=== PATIENT | female | born 1960 | race Caucasian/White ===

== ENCOUNTER 2016-12-15 01:14 | Emergency (ER) | payer SELFPAY ==
[~2016-12-15] VITALS: Ht 152.4 cm; Wt 102.1 kg
--- NOTE | 2016-12-15 01:16 | ED.ADGEN ---
Past History Past Medical History: Anxiety, Hypertension, Pneumonia Past Surgical History: No Surgical History Alcohol Use: None Drug Use: None Adult General Chief Complaint Chief Complaint hypertension HPI HPI Patient is a 56 year old female who presents with blood pressures. She states she used to have a history of high blood pressure and was on metoprolol however was able to be taken off this a year ago after she dropped 60 pounds. She states over the last year she is gaining back or 60 pounds and didn't know she had high blood pressure and today she was getting her physical done for her new job when her blood pressures were being recorded as 180/120, repeated and was 180/114. She denies any nausea fevers chills chest pain dysuria abdominal discomfort or other concerns. 7 history of tobacco abuse and smokes a pack per day stone that for several years. She currently does not have a primary care physician. Review of Systems Review of Systems Constitutional: Denies fever or chills [] Eyes: Denies change in visual acuity, redness, or eye pain [] HENT: Denies nasal congestion or sore throat [] Respiratory: Denies cough or shortness of breath [] Cardiovascular: No additional information not addressed in HPI [] GI: Denies abdominal pain, nausea, vomiting, bloody stools or diarrhea [] : Denies dysuria or hematuria [] Musculoskeletal: Denies back pain or joint pain [] Integument: Denies rash or skin lesions [] Neurologic: Denies headache, focal weakness or sensory changes [] Endocrine: Denies polyuria or polydipsia [] Allergies Allergies Allergies Coded Allergies Type Severity Reaction Last Updated Verified No Known Drug Allergies 11/02/15 No Physical Exam Physical Exam Constitutional: Well developed, well nourished, no acute distress, non-toxic appearance. [] HENT: Normocephalic, atraumatic, bilateral external ears normal, oropharynx moist, no oral exudates, nose normal. [] Eyes: PERRLA, EOMI, conjunctiva normal, no discharge. [] Neck: Normal range of motion, no tenderness, supple, no stridor. [] Cardiovascular:Heart rate regular rhythm, no murmur [] Lungs & Thorax: Bilateral breath sounds clear to auscultation [] Abdomen: Bowel sounds normal, soft, no tenderness, no masses, no pulsatile masses. [] Skin: Warm, dry, no erythema, no rash. [] Back: No tenderness, no CVA tenderness. [] Extremities: No tenderness, no cyanosis, no clubbing, ROM intact, no edema. [] Neurologic: Alert and oriented X 3, normal motor function, normal sensory function, no focal deficits noted. [] Psychologic: Affect normal, judgement normal, mood normal. [] Current Patient Data Vital Signs Vital Signs Date Time Temp Pulse Resp B/P (MAP) Pulse Ox O2 Delivery O2 Flow Rate FiO2 12/15/16 01:47 74 20 142/98 (113) 95 Room Air 12/15/16 01:20 97.6 Lab Results Laboratory Tests Test 12/15/16 01:35 12/15/16 01:40 Urine Collection Type Unknown Urine Color Yellow Urine Clarity Clear Urine pH 5.0 Urine Specific [place] 1.020 Urine Protein 30 mg/dl (NEG-TRACE) Urine Glucose (UA) Neg mg/dL (NEG) Urine Ketones (Stick) Neg mg/dL (NEG) Urine Blood Trace (NEG) Urine Nitrite Neg (NEG) Urine Bilirubin Neg (NEG) Urine Urobilinogen Dipstick 0.2 mg/dL (0.2 mg/dL) Urine Leukocyte Esterase Large (NEG) Urine RBC Occ /HPF (0-2) Urine WBC 5-10 /HPF (0-4) Urine Squamous Epithelial Cells Few /LPF Urine Bacteria Few /HPF (0-FEW) Urine Opiates Screen Neg (NEG) Urine Methadone Screen Neg (NEG) Urine Barbiturates Neg (NEG) Urine Phencyclidine Screen Neg (NEG) Urine Amphetamine/Methamphetamine Neg (NEG) Urine Benzodiazepines Screen Neg (NEG) Urine Cocaine Screen Neg (NEG) Urine Cannabinoids Screen Neg (NEG) Urine Ethyl Alcohol Neg (NEG) White Blood Count 9.1 x10^3/uL (4.0-11.0) Red Blood Count 4.74 x10^6/uL (3.50-5.40) Hemoglobin 15.1 g/dL (12.0-15.5) Hematocrit 43.4 % (36.0-47.0) Mean Corpuscular Volume 92 fL (79-100) Mean Corpuscular Hemoglobin 32 pg (25-35) Mean Corpuscular Hemoglobin Concent 35 g/dL (31-37) Red Cell Distribution Width 12.4 % (11.5-14.5) Platelet Count 200 x10^3/uL (140-400) Neutrophils (%) (Auto) 55 % (31-73) Lymphocytes (%) (Auto) 37 % (24-48) Monocytes (%) (Auto) 5 % (0-9) Eosinophils (%) (Auto) 2 % (0-3) Basophils (%) (Auto) 0 % (0-3) Neutrophils # (Auto) 5.0 x10^3uL (1.8-7.7) Lymphocytes # (Auto) 3.4 x10^3/uL (1.0-4.8) Monocytes # (Auto) 0.5 x10^3/uL (0.0-1.1) Eosinophils # (Auto) 0.2 x10^3/uL (0.0-0.7) Basophils # (Auto) 0.0 x10^3/uL (0.0-0.2) Sodium Level 139 mmol/L (136-145) Potassium Level 3.9 mmol/L (3.5-5.1) Chloride Level 103 mmol/L (98-107) Carbon Dioxide Level 26 mmol/L (21-32) Anion Gap 10 (6-14) Blood Urea Nitrogen 31 mg/dL (7-20) H Creatinine 0.8 mg/dL (0.6-1.0) Estimated GFR (Cockcroft-Gault) 74.5 BUN/Creatinine Ratio 39 (6-20) H Glucose Level 98 mg/dL (70-99) Calcium Level 9.4 mg/dL (8.5-10.1) Magnesium Level 2.0 mg/dL (1.8-2.4) Total Bilirubin 0.5 mg/dL (0.2-1.0) Aspartate Amino Transferase (AST) 16 U/L (15-37) Alanine Aminotransferase (ALT) 30 U/L (14-59) Alkaline Phosphatase 80 U/L (46-116) Creatine Kinase 102 U/L (26-192) Creatine Kinase MB (Mass) 1.8 ng/mL (0.0-3.6) Creatine Kinase MB Relative Index 1.8 % (0-4) Troponin I Quantitative < 0.017 ng/mL (0-0.055) BZ-Ovd-Y-Type Natriuretic Peptide 40 pg/mL (0-124) Total Protein 8.1 g/dL (6.4-8.2) Albumin 4.1 g/dL (3.4-5.0) Albumin/Globulin Ratio 1.0 (1.0-1.7) EKG EKG EKG shows sinus rhythm with a rate of [address] elevations, T-wave inversion noted in aVL, QTC 433 ms, left axis deviation, as interpreted by me. Radiology/Procedures Radiology/Procedures One view chest x-ray does not show any focal consolidations, bony abnormalities or pneumothorax, as interpreted by me. Course & Med Decision Making Course & Med Decision Making Pertinent Labs and Imaging studies reviewed. (See chart for details) Labs, EKG did not show any acute abnormalities. Patient is instructed to check her blood pressure over the next week at [facility] and write these down and taken to her primary care physician's office. Return precautions given she is agreeable to the plan discharged in stable condition this time. Repeat blood pressures came down in the 140s systolic. Final Impression Final Impression Elevated blood pressure Problems: Dragon Disclaimer Dragon Disclaimer This electronic medical record was generated, in whole or in part, using a voice recognition dictation system. TONI LOU MD December 15, 2016 01:16
--- NOTE | 2016-12-15 01:46 | EKG ---
[address] [address] Test Date: 2016-12-15 Test Time: 01:42:30 Pat Name: NACHO ESTEVEZ Department: Room: Gender: F Data Analyst: : 1960 Requested By: TONI LOU Order Number: [id number] Reading MD: Alvaro Gonzalez Measurements Intervals Josephine Rate: 73 P: 25 WY: 168 QRS: -6 QRSD: 100 T: 56 QT: 390 QTc: 433 Interpretive Statements SINUS RHYTHM Electronically Signed On 12-20-2016 9:15:06 CDT by Alvaro Gonzalez
[2016-12-15 02:08] LABS: BASO % 0 % (0-3); EOS # 0.2 x10^3/uL (0.0-0.7); EOS % 2 % (0-3); HEMATOCRIT 43.4 % (36.0-47.0); HEMOGLOBIN 15.1 g/dL (12.0-15.5); LYMPH # 3.4 x10^3/uL (1.0-4.8); LYMPH % 37 % (24-48); MEAN CORPUSCULAR HEMOGLOBIN 32 pg (25-35); MEAN CORPUSCULAR HGB CONC 35 g/dL (31-37); MEAN CORPUSCULAR VOLUME 92 fL (79-100); MONO # 0.5 x10^3/uL (0.0-1.1); MONO % 5 % (0-9); NEUT % 55 % (31-73); PLATELET COUNT 200 x10^3/uL (140-400); RED BLOOD COUNT 4.74 x10^6/uL (3.50-5.40); RED CELL DISTRIBUTION WIDTH 12.4 % (11.5-14.5); WHITE BLOOD COUNT 9.1 x10^3/uL (4.0-11.0)
[2016-12-15 02:19] LABS: BACTERIA,URINE FEW /HPF (0-FEW); BILIRUBIN,URINE NEG (NEG); CLARITY,URINE CLEAR; COLOR,URINE YELLOW; GLUCOSE,URINE NEG (NEG); NITRITE,URINE NEG (NEG); RBC,URINE OCC /HPF (0-2); SQUAMOUS EPITHELIAL CELL,UR FEW /LPF; UROBILINOGEN,URINE 0.2 mg/dL (0.2 mg/dL)
[2016-12-15 02:21] LABS: BARBITURATES NEG (NEG); BENZODIAZEPINES NEG (NEG); CANNABINOIDS NEG (NEG); COCAINE NEG (NEG); METHADONE NEG (NEG); OPIATES NEG (NEG); PHENCYCLIDINE NEG (NEG)
[2016-12-15 02:23] LABS: AMPHETAMINE/METHAMPHETAMINE NEG (NEG)
[2016-12-15 02:35] LABS: ALBUMIN 4.1 g/dL (3.4-5.0); CALCIUM 9.4 mg/dL (8.5-10.1); CREATININE 0.8 mg/dL (0.6-1.0); GFR 74.5; POTASSIUM 3.9 mmol/L (3.5-5.1); TOTAL BILIRUBIN 0.5 mg/dL (0.2-1.0); TOTAL PROTEIN 8.1 g/dL (6.4-8.2)
[2016-12-15 03:00] VITALS: BP 124/96
--- NOTE | 2016-12-15 07:15 | RAD ---
Exam performed: One view chest. History: Hypertension Date of service: 12/15/16, comparison: 04/25/16 Single AP upright portable view chest findings: Borderline cardiomegaly. Ectatic tortuous aorta. Lungs are clear. No pleural effusion or pneumothorax. Impression: Stable borderline cardiomegaly with ectatic tortuous aorta. No acute pulmonary findings seen.
== END 2016-12-15 03:20 | disposition home or self-care (01) ==
LOC: ER 01:17
DX: I10 Essential (primary) hypertension (principal); F41.9 Anxiety disorder, unspecified; F17.210 Nicotine dependence, cigarettes, uncomplicated
CPT/HCPCS: 36415; 71010; 80053; 80305; 81001; 82553; 83735; 83880; 84443; 84484; 85027; 87086; 93005; G0481; 99285-25

== ENCOUNTER 2016-12-23 23:10 | Emergency (ER) | payer SELFPAY ==
[~2016-12-23] VITALS: Ht 152.4 cm; Wt 99.8 kg
--- NOTE | 2016-12-24 01:05 | PHYS DOC ---
General Chief Complaint: HYPOTENSION Stated Complaint: BLOOD PRESSURE LOW,DIZZY,NAUSEA Time Seen by MD: 23:15 Source: patient, old records Exam Limitations: no limitations Problems: History of Present Illness Initial Comments Pt is 56/F to ED c/o low BP. Pt seen at [facility] and rx HCTZ, clonidine, lisinopril for HTN. Pt doesn' t have a PCP, was seen here last week for elevated BP but on arrival it was normal. Pt took two clonidine last night then lisinopril this am, today pt felt dizzy and light headed. Checked BP at work 80's/40's, pt drank some fluids and drove to ED. In ED SBP 120's pt without symptoms. no cp/sob/focal neurodeficit/n/v/d Timing/Duration: 4-6 hours Severity: severe Modifying Factors: worse with medication, improves with rest Associated Symptoms: malaise, other Allergies: Coded Allergies: No Known Drug Allergies (Unverified , 11/02/15) Past Medical History Medical History: arthritis, hypertension, other Surgical History: noncontributory Social History Smoker: cigarettes Alcohol: rarely Drugs: none Review of Systems Constitutional: denies chills, denies diaphoresis, denies fever, malaise Respiratory: denies cough, denies shortness of breath Cardiovascular: denies chest pain, denies palpitations, denies syncope Gastrointestinal: denies diarrhea, denies nausea, denies vomiting Genitourinary: denies dysuria, denies frequency, denies hematuria Musculoskeletal: denies back pain, denies joint swelling, denies neck pain Psychiatric/Neurological: see HPI Hematologic/Lymphatic: denies blood clots, denies easy bleeding, denies easy bruising Physical Exam General Appearance: WD/WN, no apparent distress Eyes: bilateral eye normal inspection, bilateral eye PERRL, bilateral eye EOMI Ear, Nose, Throat: hearing grossly normal, normal ENT inspection, normal pharynx Neck: non-tender, supple Respiratory: normal breath sounds, no respiratory distress Cardiovascular: normal peripheral pulses, regular rate, rhythm Gastrointestinal: non tender, soft Back: no CVA tenderness, no vertebral tenderness Extremities: non-tender, normal inspection 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 I emphasized need for PCP with follow up, pt expressed agreement/understanding. Departure Time of Disposition: 01:03 Disposition: 01 HOME, SELF-CARE Diagnosis: hypotension (adverse med rxn), HTN Condition: STABLE Patient Instructions: Hypertension Additional Instructions: OK to return to work tomorrow. Rest, no strenuous activity. Discontinue clonidine and lisinopril, continue hydrochlorothiazide. Keep BP log twice daily as discussed. Follow up with [facility] later today for recheck of BP. Return to ED with new or changing symptoms. JORDY NOLASCO DO December 24, 2016 01:05
[2016-12-24 01:10] VITALS: BP 121/82
== END 2016-12-24 01:15 | disposition home or self-care (01) ==
LOC: ER 23:10
DX: I95.2 Hypotension due to drugs (principal); T46.5X5A Adverse effect of other antihypertensive drugs, initial encounter; T46.4X5A Adverse effect of angiotensin-converting-enzyme inhibitors, initial encounter; I10 Essential (primary) hypertension; F17.210 Nicotine dependence, cigarettes, uncomplicated; Y92.89 Other specified places as the place of occurrence of the external cause
CPT/HCPCS: 99281; 99283

== ENCOUNTER 2017-03-05 09:27 | Emergency (ER) | payer BC ==
[2017-03-05 09:30] VITALS: BP 160/87
[2017-03-05] MEDS ORDERED: MELO7.5T5 PO (10:30)
[2017-03-05] MEDS ORDERED: LISI1TAB3 PO (10:30)
--- NOTE | 2017-03-05 10:30 | PHYS DOC ---
Past History Past Medical History: Arthritis, Hypertension, Hypotension, Pneumonia Past Surgical History: No Surgical History Alcohol Use: Rarely Drug Use: None Adult General Chief Complaint Chief Complaint: wrist pain HPI HPI Patient is a 56-year-old female who presents ambulatory to the emergency department with the complaint of multiple aches and pains. Patient states "I just hurt all over" patient states her right wrist hurts "bad" all the time. Her knees were hurting worse but now its her wrists. Her left wrist hurts also. 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 She took ibuprofen at 1 AM, 800 mg, which has not helped. She denies fever. Patient has no history of ulcer. She does have a history of hypertension and "arthritis". Patient states she just got her insurance back 3 weeks ago and has not been able to make an appointment with her primary care doctor yet. She previously took lisinopril/hydrochlorothiazide for blood pressure but has been out of it for a long time because she has not seen a doctor. Review of Systems Review of Systems Constitutional: Denies fever or chills [] Respiratory: Denies cough or shortness of breath [] GI: Denies abdominal pain, nausea, vomiting, bloody stools or diarrhea [] Musculoskeletal: As in history of present illness Integument: Denies rash or skin lesions [] Neurologic: Denies headache, focal weakness or sensory changes [] Allergies Allergies Allergies Coded Allergies Type Severity Reaction Last Updated Verified No Known Drug Allergies 11/02/15 No Physical Exam Physical Exam Constitutional: Well developed, well nourished, no acute distress, non-toxic appearance. Alert, mentating normally, afebrile. HENT: Normocephalic, atraumatic, bilateral external ears normal, nose normal. [] Eyes: conjunctiva normal, no discharge. [] Neck: Normal range of motion, no stridor. [] Skin: Warm, dry, no erythema, no rash. [] Extremities: Bilateral wrists are without swelling, erythema, or deformity. She has tenderness over the thumb extensor tendon. Full range of motion of the thumb. Neurologic: Alert and oriented X 3, normal motor function, normal sensory function, no focal deficits noted. [] EKG EKG [] Radiology/Procedures Radiology/Procedures [] Course & Med Decision Making Course & Med Decision Making Pertinent Labs and Imaging studies reviewed. (See chart for details) 56-year-old female who is complaining of generalized arthritis pain but also complains of bilateral wrist pain that I believe is tendinitis. She also has run out of her antihypertensives and wants a refill. See instructions for plan. [] Dragon Disclaimer Dragon Disclaimer This chart was dictated in whole or in part using Voice Recognition software in a busy, high-work load, and often noisy Emergency Department environment. It may contain unintended and wholly unrecognized errors or omissions. Departure Departure: Impression: Primary Impression: Tendinitis of both wrists Additional Impression: Hypertension Disposition: HOME, SELF-CARE Condition: STABLE Referrals: PCP,LEE (PCP) Patient Instructions: Hypertension, [id number] Additional Instructions: For your diagnosis of hypertension, I have given you a prescription of the hypertension medication that you were taking in the past. Be sure to make an appointment as soon as possible for follow-up with a doctor in the clinic to manage your chronic medical problems. Your wrist pain is caused by tendinitis which means an inflamed tendon. This is sometimes caused by overuse of the tendon. As much as possible, try to rest your wrist and thumb area. Wear the Velcro splints to help limit movement of your thumb. Ice 15-20 minutes out of every 1-2 hours while awake. We will try a stronger anti-inflammatory medication. Since you have used Mobic the past we will get you back on that. Do not take ibuprofen when you're taking Mobic. If not better after 1-2 weeks of the above treatment, see a hand specialist for further evaluation. Scripts Meloxicam (MOBIC) 7.5 Mg Tablet 1 TAB PO DAILY for tendinitis, #30 TAB 1 Refill Prov: BENEDICT QUIROS MD 03/05/17 Lisinopril/Hydrochlorothiazide (LISINOPRIL-HCTZ 10-12.5 MG TAB) 1 Each Tablet 1 TAB PO DAILY for hypertension, #30 TAB 5 Refills Prov: BENEDICT QUIROS MD 03/05/17 Problem Qualifiers BENEDICT QUIROS MD Mar 05, 2017 10:30
== END 2017-03-05 10:35 | disposition home or self-care (01) ==
LOC: ER 09:27
DX: M77.8 Other enthesopathies, not elsewhere classified (principal); I10 Essential (primary) hypertension; M19.90 Unspecified osteoarthritis, unspecified site
CPT/HCPCS: 99283

== ENCOUNTER 2018-01-07 16:03 | Emergency (ER) | payer BC ==
[~2018-01-07] VITALS: Ht 152.4 cm; Wt 91.8 kg
[~2018-01-07 16:03] MED LIST: LISI1TAB3 PO; MELO7.5T5 PO
[2018-01-07 16:13] VITALS: BP 130/64
[2018-01-07] MEDS ORDERED: HYDR-971 PO (16:39)
--- NOTE | 2018-01-07 16:43 | PHYS DOC ---
Past History Past Medical History: Depression, High Cholesterol, Hypertension Past Surgical History: No Surgical History Alcohol Use: None Drug Use: None Adult General Chief Complaint Chief Complaint: KNEE INJURY HPI HPI 57-year-old female presents with left knee pain. The patient has had intermittent occult he with her left knee for several months. She is on meloxicam from her PCP. She states that it is not working. She has increased her dose to 15 mg a day and still has no effect. Last 2 days she has noticed the knee is more swollen. She denies any trauma or overuse. She does work and has to be on her feet a lot. She denies any other complaints or injuries. Review of Systems Review of Systems Constitutional: Denies fever or chills [] Eyes: Denies change in visual acuity, redness, or eye pain [] HENT: Denies nasal congestion or sore throat [] Respiratory: Denies cough or shortness of breath [] Cardiovascular: No additional information not addressed in HPI [] GI: Denies abdominal pain, nausea, vomiting, bloody stools or diarrhea [] : Denies dysuria or hematuria [] Musculoskeletal: Left knee pain[] Integument: Denies rash or skin lesions [] Neurologic: Denies headache, focal weakness or sensory changes [] Endocrine: Denies polyuria or polydipsia [] All other systems were reviewed and found to be within normal limits, except as documented in this note. Allergies Allergies Allergies Coded Allergies Type Severity Reaction Last Updated Verified No Known Drug Allergies 11/02/15 No Physical Exam Physical Exam Constitutional: Well developed, well nourished, no acute distress, non-toxic appearance. [] HENT: Normocephalic, atraumatic, bilateral external ears normal, oropharynx moist, no oral exudates, nose normal. [] Eyes: PERRLA, EOMI, conjunctiva normal, no discharge. [] Neck: Normal range of motion, no tenderness, supple, no stridor. [] Cardiovascular:Heart rate regular rhythm, no murmur [] Lungs & Thorax: Bilateral breath sounds clear to auscultation [] Abdomen: Bowel sounds normal, soft, no tenderness, no masses, no pulsatile masses. [] Skin: Warm, dry, no erythema, no rash. [] Back: No tenderness, no CVA tenderness. [] Extremities: Mild swelling of the left knee. Pain with palpation along the lateral joint line. Skin is not erythematous or hot. Ligaments are intact.[] Neurologic: Alert and oriented X 3, normal motor function, normal sensory function, no focal deficits noted. [] Psychologic: Affect normal, judgement normal, mood normal. [] Current Patient Data Vital Signs Vital Signs Date Time Temp Pulse Resp B/P (MAP) Pulse Ox O2 Delivery O2 Flow Rate FiO2 01/07/18 16:13 97.9 74 16 96 Room Air EKG EKG [] Radiology/Procedures Radiology/Procedures [] Course & Med Decision Making Course & Med Decision Making Pertinent Labs and Imaging studies reviewed. (See chart for details) Given the fact that the patient is walking on her knee and there is no history of recent trauma, do not believe x-rays are warranted. I checked the drug database and the patient has no record. I will give her 12 [place] 5/325 for breakthrough pain. I have instructed that she must follow-up with her PCP if this medication needs to be continued. She will also consider injections and/or orthopedic consult. [] Dragon Disclaimer Dragon Disclaimer This electronic medical record was generated, in whole or in part, using a voice recognition dictation system. Departure Departure: Impression: Primary Impression: Left knee pain Disposition: HOME, SELF-CARE Condition: STABLE Patient Instructions: Knee Pain, [id number] Scripts Hydrocodone Bit/Acetaminophen (NORCO 5-325 TABLET) 1 Each Tablet 1 TAB PO PRN Q6HRS PRN for PAIN, #12 TAB 0 Refills Prov: FIGUEROA DEL VALLE DO 01/07/18 FIGUEROA DEL VALLE DO Jan 07, 2018 16:43
== END 2018-01-07 16:48 | disposition home or self-care (01) ==
LOC: ER 16:03
DX: M25.562 Pain in left knee (principal); E78.00 Pure hypercholesterolemia, unspecified; I10 Essential (primary) hypertension
CPT/HCPCS: 99283

== ENCOUNTER 2018-07-27 18:21 | Emergency (ER) | payer BC ==
[~2018-07-27] VITALS: Ht 152.4 cm; Wt 110.7 kg
[~2018-07-27 18:21] MED LIST changes: +HYDR-3165 PO
[2018-07-27] MEDS ORDERED: IV NORMAL SALINE 1,000ML 1,000 ML IV SCH (18:50)
[2018-07-27 19:56] LABS: BASO % 0 % (0-3); EOS # 0.1 x10^3/uL (0.0-0.7); EOS % 2 % (0-3); HEMATOCRIT 37.6 % (36.0-47.0); LYMPH # 2.3 x10^3/uL (1.0-4.8); LYMPH % 30 % (24-48); MEAN CORPUSCULAR HEMOGLOBIN 32 pg (25-35); MEAN CORPUSCULAR HGB CONC 35 g/dL (31-37); MEAN CORPUSCULAR VOLUME 93 fL (79-100); MONO # 0.4 x10^3/uL (0.0-1.1); MONO % 6 % (0-9); NEUT # 4.8 x10^3uL (1.8-7.7); NEUT % 63 % (31-73); PLATELET COUNT 217 x10^3/uL (140-400); RED BLOOD COUNT 4.04 x10^6/uL (3.50-5.40); RED CELL DISTRIBUTION WIDTH 11.9 % (11.5-14.5); WHITE BLOOD COUNT 7.7 x10^3/uL (4.0-11.0)
[2018-07-27 20:10] LABS: ALBUMIN 3.5 g/dL (3.4-5.0); ALBUMIN/GLOBULIN RATIO 0.9 (1.0-1.7); CALCIUM 8.7 mg/dL (8.5-10.1); GFR 57.4; POTASSIUM 4.7 mmol/L (3.5-5.1); TOTAL BILIRUBIN 0.2 mg/dL (0.2-1.0); TOTAL PROTEIN 7.2 g/dL (6.4-8.2)
--- NOTE | 2018-07-27 20:37 | RAD ---
Examination: CT HEAD WO CONTRAST History: dizziness x 1 week
no other history Comparison/Correlation: None Findings: Axial images of the head were obtained without contrast. Topogram is unremarkable. Ventricles are normal size. No intracranial hemorrhage, midline shift, or mass effect. Bony structures are grossly unremarkable. Mild mucosal thickening of ethmoid air cells noted. Impression: No suspicious process. Unremarkable exam. Electronically signed by: Deo Nair MD (07/27/2018 8:33 PM) [facility]
[2018-07-27 21:03] LABS: BILIRUBIN,URINE NEG (NEG); CLARITY,URINE CLEAR; COLOR,URINE YELLOW; GLUCOSE,URINE NEG (NEG)
--- NOTE | 2018-07-27 21:03 | PHYS DOC ---
Adult General Chief Complaint Chief Complaint dizzy HPI HPI 57 years old female presented to the emergency department with dizziness stated that she's been feeling dizzy on and off for the whole week and had dizziness is positional especially if she changes position from laying to standing denies any weakness no numbness no visual changes Currently the emergency department she denies any symptoms stated her symptoms are resolved upon arrival she just wanted to make sure she is ok Review of Systems Review of Systems Constitutional: Denies fever or chills [] Eyes: Denies change in visual acuity, redness, or eye pain [] HENT: Denies nasal congestion or sore throat [] Respiratory: Denies cough or shortness of breath [] Cardiovascular: No additional information not addressed in HPI [] GI: Denies abdominal pain, nausea, vomiting, bloody stools or diarrhea [] : Denies dysuria or hematuria [] Musculoskeletal: Denies back pain or joint pain [] Integument: Denies rash or skin lesions [] Neurologic: Denies headache, focal weakness or sensory changes [] Endocrine: Denies polyuria or polydipsia [] All other systems were reviewed and found to be within normal limits, except as documented in this note. Current Medications Current Medications Current Medications Medications (Trade) Dose Ordered Sig/Florentin Start Time Stop Time Status Last Admin Dose Admin Sodium Chloride 1,000 ml @ 1,000 mls/hr Q1H 07/27/18 18:50 07/27/18 19:49 DC 07/27/18 19:53 1,000 MLS/HR Allergies Allergies Allergies Coded Allergies Type Severity Reaction Last Updated Verified No Known Drug Allergies 11/02/15 No Physical Exam Physical Exam Constitutional: Well developed, well nourished, no acute distress, non-toxic appearance. [] HENT: Normocephalic, atraumatic, bilateral external ears normal, oropharynx moist, no oral exudates, nose normal. [] Eyes: PERRLA, EOMI, conjunctiva normal, no discharge. [] Neck: Normal range of motion, no tenderness, supple, no stridor. [] Cardiovascular:Heart rate regular rhythm, no murmur [] Lungs & Thorax: Bilateral breath sounds clear to auscultation [] Abdomen: Bowel sounds normal, soft, no tenderness, no masses, no pulsatile masses. [] Skin: Warm, dry, no erythema, no rash. [] Back: No tenderness, no CVA tenderness. [] Extremities: No tenderness, no cyanosis, no clubbing, ROM intact, no edema. [] Neurologic: Alert and oriented X 3, normal motor function, normal sensory function, no focal deficits noted. [] Psychologic: Affect normal, judgement normal, mood normal. [] Current Patient Data Vital Signs Vital Signs Date Time Temp Pulse Resp B/P (MAP) Pulse Ox O2 Delivery O2 Flow Rate FiO2 07/27/18 18:47 96 20 149/105 (120) 07/27/18 18:25 98.2 96 Room Air Lab Results Laboratory Tests Test 07/27/18 19:41 White Blood Count 7.7 x10^3/uL (4.0-11.0) Red Blood Count 4.04 x10^6/uL (3.50-5.40) Hemoglobin 13.0 g/dL (12.0-15.5) Hematocrit 37.6 % (36.0-47.0) Mean Corpuscular Volume 93 fL (79-100) Mean Corpuscular Hemoglobin 32 pg (25-35) Mean Corpuscular Hemoglobin Concent 35 g/dL (31-37) Red Cell Distribution Width 11.9 % (11.5-14.5) Platelet Count 217 x10^3/uL (140-400) Neutrophils (%) (Auto) 63 % (31-73) Lymphocytes (%) (Auto) 30 % (24-48) Monocytes (%) (Auto) 6 % (0-9) Eosinophils (%) (Auto) 2 % (0-3) Basophils (%) (Auto) 0 % (0-3) Neutrophils # (Auto) 4.8 x10^3uL (1.8-7.7) Lymphocytes # (Auto) 2.3 x10^3/uL (1.0-4.8) Monocytes # (Auto) 0.4 x10^3/uL (0.0-1.1) Eosinophils # (Auto) 0.1 x10^3/uL (0.0-0.7) Basophils # (Auto) 0.0 x10^3/uL (0.0-0.2) Sodium Level 141 mmol/L (136-145) Potassium Level 4.7 mmol/L (3.5-5.1) Chloride Level 105 mmol/L (98-107) Carbon Dioxide Level 27 mmol/L (21-32) Anion Gap 9 (6-14) Blood Urea Nitrogen 37 mg/dL (7-20) H Creatinine 1.0 mg/dL (0.6-1.0) Estimated GFR (Cockcroft-Gault) 57.4 BUN/Creatinine Ratio 37 (6-20) H Glucose Level 102 mg/dL (70-99) H Calcium Level 8.7 mg/dL (8.5-10.1) Total Bilirubin 0.2 mg/dL (0.2-1.0) Aspartate Amino Transferase (AST) 16 U/L (15-37) Alanine Aminotransferase (ALT) 31 U/L (14-59) Alkaline Phosphatase 85 U/L (46-116) Troponin I Quantitative < 0.017 ng/mL (0-0.055) Total Protein 7.2 g/dL (6.4-8.2) Albumin 3.5 g/dL (3.4-5.0) Albumin/Globulin Ratio 0.9 (1.0-1.7) L EKG EKG [] Radiology/Procedures Radiology/Procedures [] Course & Med Decision Making Course & Med Decision Making Pertinent Labs and Imaging studies reviewed. (See chart for details) [] Final Impression Final Impression [] Problems: (1) Volume depletion (2) Hypertension Qualifiers: Qualified Codes: I10 - Essential (primary) hypertension Dragon Disclaimer Dragon Disclaimer This electronic medical record was generated, in whole or in part, using a voice recognition dictation system. LIZETH HERNDON MD Jul 27, 2018 21:03
[2018-07-27 21:04] LABS: BACTERIA,URINE 0 /HPF (0-FEW); NITRITE,URINE NEG (NEG); SQUAMOUS EPITHELIAL CELL,UR MOD /LPF; UROBILINOGEN,URINE 0.2 mg/dL (0.2 mg/dL)
[2018-07-27 21:14] VITALS: BP 132/92
--- NOTE | 2018-07-28 05:45 | EKG ---
[address] [address] Test Date: 2018-07-27 Test Time: 18:58:47 Pat Name: NACHO ESTEVEZ Department: Room: Gender: F [employer]: : 1960 Requested By: LIZETH HERNDON Order Number: [id number] Reading MD: Measurements Intervals [place] Rate: 80 P: 31 MN: 162 QRS: 8 QRSD: 88 T: 32 QT: 366 QTc: 426 Interpretive Statements SINUS RHYTHM NO SPECIFIC ECG ABNORMALITIES RI6.01 Unconfirmed report No previous ECG available for comparison
== END 2018-07-27 21:10 | disposition home or self-care (01) ==
LOC: ER 18:21
DX: E86.9 Volume depletion, unspecified (principal); I10 Essential (primary) hypertension; R42 Dizziness and giddiness
CPT/HCPCS: 36415; 70450; 80053; 81001; 84484; 85025; 85379; 93005; 96360; 99284-25; J7030

== ENCOUNTER 2018-08-29 11:24 | Emergency (ER) | payer BC ==
[~2018-08-29] VITALS: Ht 152.4 cm; Wt 108.9 kg
[2018-08-29] MEDS ORDERED: MUPI22OI2 TP (12:16)
--- NOTE | 2018-08-29 12:17 | PHYS DOC ---
Past History Past Medical History: Depression, High Cholesterol, Hypertension Past Surgical History: No Surgical History Alcohol Use: None Drug Use: None Adult General Chief Complaint Chief Complaint: ABDOMINAL PAIN HPI HPI Patient is a 57 year old F who presents with abdominal pain in her belly button. Nettie states that she will have a piece of her abdomen protruded from her belly button she is then able to push back in. Occasionally this is painful. It is reducible every time. She also states that she has had constipation. She denies nausea or vomiting. She has normal urinations. She has no other associated symptoms. Review of Systems Review of Systems Constitutional: Denies fever or chills [] Eyes: Denies change in visual acuity, redness, or eye pain [] HENT: Denies nasal congestion or sore throat [] Respiratory: Denies cough or shortness of breath [] Cardiovascular: No additional information not addressed in HPI [] GI: Negative except history of present illness : Denies dysuria or hematuria [] Musculoskeletal: Denies back pain or joint pain [] Integument: Denies rash or skin lesions [] Neurologic: Denies headache, focal weakness or sensory changes [] Endocrine: Denies polyuria or polydipsia [] All other systems were reviewed and found to be within normal limits, except as documented in this note. Family History Family History No pertinent family medical history was reported Current Medications Current Medications Current medications were reviewed Allergies Allergies Allergies Coded Allergies Type Severity Reaction Last Updated Verified No Known Drug Allergies 11/02/15 No Physical Exam Physical Exam Constitutional: Well developed, well nourished, no acute distress, non-toxic appearance. [] HENT: Normocephalic, atraumatic, Eyes: EOMI, conjunctiva normal, no discharge. [] Neck: Normal range of motion, no tenderness, supple, no stridor. [] Cardiovascular:Heart rate regular rhythm, Lungs & Thorax: Bilateral breath sounds clear to auscultation [] Abdomen: Bowel sounds normal, soft, no tenderness, no pulsatile masses. Skin: Warm, dry, no erythema. Herniation over the umbilicus that is reducible. Back: No tenderness, no CVA tenderness. [] Extremities: No tenderness, no cyanosis, no clubbing, ROM intact, no edema. [] Neurologic: Alert and oriented X 3, normal motor function, normal sensory function, no focal deficits noted. [] Psychologic: Affect normal, judgement normal, mood normal. [] Current Patient Data Vital Signs Normal vital signs. Please review nursing documentation for specifics Lab Results Laboratory Tests Test 08/29/18 11:35 Urine Collection Type Unknown Urine Color Yellow Urine Clarity Cloudy Urine pH 6.0 Urine Specific [place] 1.025 Urine Protein 30 mg/dl (NEG-TRACE) Urine Glucose (UA) Neg mg/dL (NEG) Urine Ketones (Stick) Neg mg/dL (NEG) Urine Blood Small (NEG) Urine Nitrite Neg (NEG) Urine Bilirubin Neg (NEG) Urine Urobilinogen Dipstick 0.2 mg/dL (0.2 mg/dL) Urine Leukocyte Esterase Mod (NEG) Urine RBC 6-10 /HPF (0-2) Urine WBC 20-40 /HPF (0-4) Urine Squamous Epithelial Cells Many /LPF Urine Bacteria Many /HPF (0-FEW) Urine Mucus Slight /LPF Urine Trichomonas Present EKG EKG [] Radiology/Procedures Radiology/Procedures [] Course & Med Decision Making Course & Med Decision Making Pertinent Labs and Imaging studies reviewed. (See chart for details) [] Dragon Disclaimer Dragon Disclaimer This electronic medical record was generated, in whole or in part, using a voice recognition dictation system. Departure Departure: Impression: Primary Impression: Umbilical hernia Additional Impressions: Cellulitis Constipation UTI (urinary tract infection) Disposition: 01 HOME, SELF-CARE Condition: STABLE Referrals: DOMENICO SALAS MD (PCP) PEACE JONES MD Patient Instructions: Constipation, Adult Additional Instructions: Nettie was seen in the emergency department for abdominal pain. No emergency medical condition was found on history physical exam. She was found have symptoms consistent with an umbilical hernia with overlying mild cellulitis. She was given a topical antibiotic and advised follow-up with a surgeon as soon as possible for further management of this hernia. She is also advised to drink plenty of water and consider the use of MiraLAX for her constipation. She was found to have signs and symptoms consistent with urinary tract infection. She was started on oral antibiotics and advised follow-up with her primary care doctor in the next 5-7 days for further management. Scripts Cefdinir (CEFDINIR) 300 Mg Capsule 1 CAP PO BID for UTI for 7 Days, #14 CAP Prov: LEATHA ABRAHAM MD 08/29/18 Mupirocin (MUPIROCIN) 22 Gm Oint...g. 1 RAMOS TP TID for cellulitis for 7 Days, #22 GM Prov: LEATHA ABRAHAM MD 08/29/18 Problem Qualifiers Primary Impression: Umbilical hernia Obstruction and gangrene presence: without obstruction or gangrene Qualified Codes: K42.9 - Umbilical hernia without obstruction or gangrene Additional Impressions: Cellulitis Site of cellulitis: trunk Site of cellulitis of trunk: umbilicus Qualified Codes: L03.316 - Cellulitis of umbilicus Constipation Constipation type: unspecified constipation type Qualified Codes: K59.00 - Constipation, unspecified UTI (urinary tract infection) Urinary tract infection type: acute cystitis Hematuria presence: with hematuria Qualified Codes: N30.01 - Acute cystitis with hematuria LEATHA ABRAHAM MD Aug 29, 2018 12:17
[2018-08-29 12:22] LABS: BILIRUBIN,URINE NEG (NEG); CLARITY,URINE CLOUDY; COLOR,URINE YELLOW; GLUCOSE,URINE NEG (NEG); NITRITE,URINE NEG (NEG); UROBILINOGEN,URINE 0.2 mg/dL (0.2 mg/dL); WBC,URINE 20-40 /HPF (0-4)
[2018-08-29 12:23] LABS: SQUAMOUS EPITHELIAL CELL,UR MANY /LPF; TRICHOMONAS,URINE PRESENT
[2018-08-29 12:24] LABS: BACTERIA,URINE MANY /HPF (0-FEW)
[2018-08-29 12:40] VITALS: BP 144/79
[2018-08-29] MEDS ORDERED: CEFD300C PO (12:40)
== END 2018-08-29 12:40 | disposition home or self-care (01) ==
LOC: ER 11:24
DX: K42.9 Umbilical hernia without obstruction or gangrene (principal); L03.316 Cellulitis of umbilicus; K59.00 Constipation, unspecified; N30.01 Acute cystitis with hematuria; E78.00 Pure hypercholesterolemia, unspecified; I10 Essential (primary) hypertension; F32.9 Major depressive disorder, single episode, unspecified
CPT/HCPCS: 81001; 87086; 99283

== ENCOUNTER 2019-06-30 15:13 | Emergency (ER) | payer BC ==
[~2019-06-30 15:13] MED LIST changes: +CEFD300C PO; +LISI1TAB23 PO; -LISI1TAB3 PO; +MUPI22OI2 TP
[2019-06-30 15:25] VITALS: BP 140/90
[2019-06-30] MEDS ORDERED: IBUPROFEN 400 MG TABLET. PO ONE (15:45)
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
[2019-06-30] MEDS ORDERED: HYDR-3165 PO (16:34)
--- NOTE | 2019-06-30 17:38 | PHYS DOC ---
Past History Past Medical History: Depression, High Cholesterol, Hypertension Past Surgical History: No Surgical History Alcohol Use: None Drug Use: None Adult General Chief Complaint Chief Complaint: MECHANICAL FALL HPI HPI Patient is a 58-year-old female presenting with right arm pain she missed a step because of light blue out and it was dark as ago she just tripped most pain is over the right olecranon moderate radiates to the wrist and up to the shoulder sharp worse with palpation Review of Systems Review of Systems Constitutional: Denies fever or chills [] Eyes: Denies change in visual acuity, redness, or eye pain [] HENT: Denies nasal congestion or sore throat [] Respiratory: Denies cough or shortness of breath [] All other systems were reviewed and found to be within normal limits, except as documented in this note. Current Medications Current Medications Current Medications Medications (Trade) Dose Ordered Sig/Florentin Start Time Stop Time Status Last Admin Dose Admin Ibuprofen (Motrin) 400 mg 1X ONCE 06/30/19 15:45 06/30/19 15:46 DC 06/30/19 16:05 400 MG Allergies Allergies Allergies Coded Allergies Type Severity Reaction Last Updated Verified No Known Drug Allergies 11/02/15 No Physical Exam Physical Exam Constitutional: Well developed, well nourished, no acute distress, non-toxic appearance. [] HENT: Normocephalic, atraumatic, bilateral external ears normal, oropharynx moist, no oral exudates, nose normal. [] Eyes: PERRLA, EOMI, conjunctiva normal, no discharge. [] Neck: Normal range of motion, no tenderness, supple, no stridor. [] Pulmonary: Normal respiratory effort no increased work of breathing no obvious chest wall trauma Abdomen: Bowel sounds normal, soft, no tenderness, no masses, no pulsatile masses. [] No snuffbox tenderness Extremities: Small ecchymosis over the bicep and also tenderness at the olecranon Neurologic: Alert and oriented X 3, normal motor function, normal sensory function, no focal deficits noted. [] Psychologic: Affect normal, judgement normal, mood normal. [] Current Patient Data Vital Signs Vital Signs Date Time Temp Pulse Resp B/P (MAP) Pulse Ox O2 Delivery O2 Flow Rate FiO2 06/30/19 15:25 78 18 98 Room Air Lab Results od Pressure Systolic * 140 mm Hg (100-140) Blood Pressure Diastolic * 90 mm Hg (60-100) Blood Pressure Mean * 107 mm Hg Pulse Rate * 78 beats per minute (60-90) Respiratory Rate * 18 breaths per minute (12-24) Oxygen Delivery Method * Room Air Bedside Pulse Oximetry * 98 % Treatment Prior to Arrival * No Complaint of Pain EKG EKG [] Radiology/Procedures Radiology/Procedures [] Impressions: IMPRESSION: 1. Small bone fragment adjacent to the olecranon process, suggesting a fracture fragment of uncertain chronicity. Given the presence of an elbow effusion, this may be acute. Correlate for pain in this location. 2. Moderate acromioclavicular and mild glenohumeral osteoarthritis. Electronically signed by: Christine Weber MD (06/30/2019 4:21 PM) [facility] [place] Course & Med Decision Making Course & Med Decision Making Pertinent Labs and Imaging studies reviewed. (See chart for details) []Small olecranon avulsion fracture sling placed referral to orthopedics provided return precautions discussed pain control given patient neuro intact Dragon Disclaimer Dragon Disclaimer This electronic medical record was generated, in whole or in part, using a voice recognition dictation system. Departure Departure: Impression: Primary Impression: Elbow fracture Disposition: 01 HOME, SELF-CARE Condition: STABLE Referrals: JOVON LONDON MD Patient Instructions: Elbow Fracture, Simple Scripts Hydrocodone Bit/Acetaminophen (NORCO 5-325 TABLET) 1 Each Tablet 1-2 TAB PO Q4-6HRS PRN for PAIN, #12 TAB Prov: GIO CERON MD 06/30/19 GIO CERON MD Jun 30, 2019 17:38
== END 2019-06-30 16:36 | disposition home or self-care (01) ==
LOC: ER 15:13
DX: S42.401A Unspecified fracture of lower end of right humerus, initial encounter for closed fracture (principal); I10 Essential (primary) hypertension; E78.00 Pure hypercholesterolemia, unspecified; W01.0XXA Fall on same level from slipping, tripping and stumbling without subsequent striking against object, initial encounter; Y93.89 Activity, other specified; Y92.89 Other specified places as the place of occurrence of the external cause; Y99.8 Other external cause status
CPT/HCPCS: 73030; 73080; 73110; 99284

== ENCOUNTER 2019-09-22 21:24 | Emergency (ER) | payer SELFPAY ==
[~2019-09-22] VITALS: Ht 152.4 cm; Wt 106.4 kg
[2019-09-22] MEDS ORDERED: ONDANSETRON PF 4 MG/2 ML VIAL. ONE (21:40)
[2019-09-22] MEDS ORDERED: MORPHINE SULFATE 4 MG/ML DISP.SYRIN. IV ONE (22:00)
[2019-09-22] MEDS ORDERED: ONDANSETRON PF 4 MG/2 ML VIAL. IVP ONE ×2 (22:00→22:30)
[2019-09-22 22:10] LABS: BASO % 0 % (0-3); EOS # 0.1 x10^3/uL (0.0-0.7); EOS % 1 % (0-3); HEMATOCRIT 45.4 % (36.0-47.0); HEMOGLOBIN 15.2 g/dL (12.0-15.5); LYMPH # 2.2 x10^3/uL (1.0-4.8); LYMPH % 22 % (24-48); MEAN CORPUSCULAR HEMOGLOBIN 31 pg (25-35); MEAN CORPUSCULAR HGB CONC 34 g/dL (31-37); MEAN CORPUSCULAR VOLUME 94 fL (79-100); MONO # 0.5 x10^3/uL (0.0-1.1); MONO % 5 % (0-9); NEUT # 7.6 x10^3uL (1.8-7.7); NEUT % 73 % (31-73); PLATELET COUNT 225 x10^3/uL (140-400); RED BLOOD COUNT 4.85 x10^6/uL (3.50-5.40); RED CELL DISTRIBUTION WIDTH 12.9 % (11.5-14.5); WHITE BLOOD COUNT 10.5 x10^3/uL (4.0-11.0)
[2019-09-22 22:11] LABS: CALCIUM 9.8 mg/dL (8.5-10.1); GFR 57.1; POTASSIUM 4.2 mmol/L (3.5-5.1)
[2019-09-22 22:26] LABS: ALBUMIN 3.7 g/dL (3.4-5.0); ALBUMIN/GLOBULIN RATIO 0.8 (1.0-1.7); TOTAL BILIRUBIN 0.1 mg/dL (0.2-1.0); TOTAL PROTEIN 8.1 g/dL (6.4-8.2)
[2019-09-22] MEDS ORDERED: HYDROmorphone PF 1 MG/ML DISP.SYRIN IV ONE (22:30)
[2019-09-22] MEDS ORDERED: CONTRAST GIVEN MC PRN (22:30)
[2019-09-22 22:56] LABS: CLARITY,URINE CLEAR; COLOR,URINE YELLOW
[2019-09-22 22:57] LABS: BACTERIA,URINE FEW /HPF (0-FEW); BILIRUBIN,URINE NEG (NEG); GLUCOSE,URINE NEG (NEG); NITRITE,URINE NEG (NEG); RBC,URINE 0 /HPF (0-2); SQUAMOUS EPITHELIAL CELL,UR FEW /LPF; TRICHOMONAS,URINE PRESENT; UROBILINOGEN,URINE 0.2 mg/dL (0.2 mg/dL); YEAST,URINE PRESENT /HPF
[2019-09-22] MEDS ORDERED: IOHEXOL 300 MG/ML 75 ML VIAL. IV ONE (23:00)
[2019-09-22] MEDS ORDERED: IV NORMAL SALINE 1,000ML 1,000 ML IV ONE (23:00)
--- NOTE | 2019-09-22 23:23 | RAD ---
INDICATION: Abdomen pain COMPARISON: None. TECHNIQUE: Axial CT images obtained through the abdomen and pelvis with contrast. One or more of the following individualized dose reduction techniques were utilized for this examination: 1. Automated exposure control; 2. Adjustment of the mA and/or kV according to patient size; 3. Use of iterative reconstruction technique. FINDINGS: Small hiatal hernia. Scattered atherosclerotic disease. No intrahepatic bile duct dilation. No peripancreatic fluid collection. Spleen unremarkable. There is some thickening of the left adrenal gland. No left-sided hydronephrosis. Urinary bladder is partially distended. No right-sided hydronephrosis. Cortical defect right kidney without hydronephrosis. Uterus is visualized. There is either a exophytic fibroid with calcifications or partially calcified adnexal lesion on the left measuring up to 23 mm. Colonic diverticulosis. No periappendiceal inflammatory changes. Ventral hernia is seen near the level of the umbilicus with fat as well as some loops of small bowel within with some edema to the fat. The sac measures approximately 76 x 70 mm with a 35 mm neck. Adjacent haziness to the fat. Degenerative changes the spine with multilevel central canal and neural foraminal stenosis. IMPRESSION: * Anterior abdominal wall hernia with loops of small bowel within as well as edema within the fat. Given the edema within could be secondary to associated inflammatory changes correlate with symptoms in the region to ensure that there is not strangulation. * Suspected exophytic lesion on the left side of the uterus with calcifications. Most likely cause would be a fibroid although a partially calcified left adnexal lesion not excluded. Electronically signed by: Ayden Loving MD (09/22/2019 11:20 PM) [id number]
[2019-09-22] MEDS ORDERED: HYDR-3165 PO (23:57)
--- NOTE | 2019-09-22 23:57 | PHYS DOC ---
Past History Past Medical History: Depression, High Cholesterol, Hypertension, Other Additional Past Medical Histor: abdominal hernia Past Surgical History: No Surgical History Alcohol Use: None Drug Use: None Adult General Chief Complaint Chief Complaint: ABDOMINAL PAIN HPI HPI Patient is a 58 year old female presents with the chief complaint of abdominal pain. Onset of intense pain prior to arrival. Patient has a known abdominal hernia. States she is usually able to reduce her hernia with laying down. Prior to arrival intense pain-- unable to reduce. Nausea without vomiting. Review of Systems Review of Systems Constitutional: Denies fever or chills [] Eyes: Denies change in visual acuity, redness, or eye pain [] HENT: Denies nasal congestion or sore throat [] Respiratory: Denies cough or shortness of breath [] Cardiovascular: No additional information not addressed in HPI [] GI: Denies vomiting, bloody stools or diarrhea [positive abdominal pain positive nausea] : Denies dysuria or hematuria [] Musculoskeletal: Denies back pain or joint pain [] Integument: Denies rash or skin lesions [] Neurologic: Denies headache, focal weakness or sensory changes [] Endocrine: Denies polyuria or polydipsia [] All other systems were reviewed and found to be within normal limits, except as documented in this note. Current Medications Current Medications Current Medications Medications (Trade) Dose Ordered Sig/[facility] Start Time Stop Time Status Last Admin Dose Admin Hydromorphone HCl (Dilaudid) 1 mg 1X ONCE 09/22/19 22:30 09/22/19 22:31 DC 09/22/19 22:28 1 MG Info (Do NOT chart on this entry -- for MONITORING) 1 each PRN DAILY PRN 09/22/19 22:30 09/24/19 22:29 Iohexol (Omnipaque 300 Mg/ml) 75 ml 1X ONCE 09/22/19 23:00 09/22/19 23:01 DC 09/22/19 22:37 60 ML Morphine Sulfate (Morphine 4mg Syringe) 4 mg 1X ONCE 09/22/19 22:00 09/22/19 22:01 DC 09/22/19 22:00 4 MG Ondansetron HCl (Zofran) 4 mg 1X ONCE 09/22/19 22:30 09/22/19 22:32 DC 09/22/19 22:28 4 MG Sodium Chloride 1,000 ml @ 1,000 mls/hr 1X ONCE 09/22/19 23:00 09/22/19 23:59 09/22/19 22:59 1,000 MLS/HR Allergies Allergies Allergies Coded Allergies Type Severity Reaction Last Updated Verified No Known Drug Allergies 11/02/15 No Physical Exam Physical Exam Constitutional: Well developed, well nourished, no acute distress, non-toxic appearance. [] HENT: Normocephalic, atraumatic, bilateral external ears normal, oropharynx moist, no oral exudates, nose normal. [] Eyes: PERRLA, EOMI, conjunctiva normal, no discharge. [] Neck: Normal range of motion, no tenderness, supple, no stridor. [] Cardiovascular:Heart rate regular rhythm, no murmur [] Lungs & Thorax: Bilateral breath sounds clear to auscultation [] Abdomen: Bowel sounds normal, soft, no tenderness, no masses, no pulsatile masses. [] Skin: Warm, dry, no erythema, no rash. [] Back: No tenderness, no CVA tenderness. [] Extremities: No tenderness, no cyanosis, no clubbing, ROM intact, no edema. [] Neurologic: Alert and oriented X 3, normal motor function, normal sensory function, no focal deficits noted. [] Psychologic: Affect normal, judgement normal, mood normal. [] Current Patient Data Vital Signs Vital Signs Date Time Temp Pulse Resp B/P (MAP) Pulse Ox O2 Delivery O2 Flow Rate FiO2 09/22/19 22:59 80 18 94 Nasal Cannula 2.0 09/22/19 22:25 193/109 (137) 09/22/19 21:25 98.0 Lab Results Laboratory Tests Test 09/22/19 21:35 09/22/19 22:13 White Blood Count 10.5 x10^3/uL (4.0-11.0) Red Blood Count 4.85 x10^6/uL (3.50-5.40) Hemoglobin 15.2 g/dL (12.0-15.5) Hematocrit 45.4 % (36.0-47.0) Mean Corpuscular Volume 94 fL (79-100) Mean Corpuscular Hemoglobin 31 pg (25-35) Mean Corpuscular Hemoglobin Concent 34 g/dL (31-37) Red Cell Distribution Width 12.9 % (11.5-14.5) Platelet Count 225 x10^3/uL (140-400) Neutrophils (%) (Auto) 73 % (31-73) Lymphocytes (%) (Auto) 22 % (24-48) L Monocytes (%) (Auto) 5 % (0-9) Eosinophils (%) (Auto) 1 % (0-3) Basophils (%) (Auto) 0 % (0-3) Neutrophils # (Auto) 7.6 x10^3uL (1.8-7.7) Lymphocytes # (Auto) 2.2 x10^3/uL (1.0-4.8) Monocytes # (Auto) 0.5 x10^3/uL (0.0-1.1) Eosinophils # (Auto) 0.1 x10^3/uL (0.0-0.7) Basophils # (Auto) 0.0 x10^3/uL (0.0-0.2) Sodium Level 141 mmol/L (136-145) Potassium Level 4.2 mmol/L (3.5-5.1) Chloride Level 102 mmol/L (98-107) Carbon Dioxide Level 29 mmol/L (21-32) Anion Gap 10 (6-14) Blood Urea Nitrogen 26 mg/dL (7-20) H Creatinine 1.0 mg/dL (0.6-1.0) Estimated GFR (Cockcroft-Gault) 57.1 BUN/Creatinine Ratio 26 (6-20) H Glucose Level 133 mg/dL (70-99) H Lactic Acid Level 2.1 mmol/L (0.4-2.0) H Calcium Level 9.8 mg/dL (8.5-10.1) Total Bilirubin 0.1 mg/dL (0.2-1.0) L Aspartate Amino Transferase (AST) 20 U/L (15-37) Alanine Aminotransferase (ALT) 38 U/L (14-59) Alkaline Phosphatase 95 U/L (46-116) Total Protein 8.1 g/dL (6.4-8.2) Albumin 3.7 g/dL (3.4-5.0) Albumin/Globulin Ratio 0.8 (1.0-1.7) L Lipase 278 U/L (73-393) Urine Collection Type Unknown Urine Color Yellow Urine Clarity Clear Urine pH 5.5 Urine Specific [place] >=1.030 Urine Protein >100 mg/dl (NEG-TRACE) Urine Glucose (UA) Neg mg/dL (NEG) Urine Ketones (Stick) Neg mg/dL (NEG) Urine Blood Neg (NEG) Urine Nitrite Neg (NEG) Urine Bilirubin Neg (NEG) Urine Urobilinogen Dipstick 0.2 mg/dL (0.2 mg/dL) Urine Leukocyte Esterase Neg (NEG) Urine RBC 0 /HPF (0-2) Urine WBC 1-4 /HPF (0-4) Urine Squamous Epithelial Cells Few /LPF Urine Bacteria Few /HPF (0-FEW) Urine Mucus Mod /LPF Urine Trichomonas Present Urine Yeast Present /HPF EKG EKG [] Radiology/Procedures Radiology/Procedures [] Impressions: CT reviewed anterior abdominal wall hernia Course & Med Decision Making Course & Med Decision Making Pertinent Labs and Imaging studies reviewed. (See chart for details) []CT and labs performed. Discussed all results. Treatment with morphine and dilaudid. Patients blood pressure elevated-- states did not take home medications today. Treated with Lisinopril 10mg PO. Patients hernia was reduce in ER. Hernia not incarcerated. Pain improved post reduction. Patient discharged home with norco-- give General surgery follow up info. Shahida Disclaimer Dragon Disclaimer This electronic medical record was generated, in whole or in part, using a voice recognition dictation system. Departure Departure: Impression: Primary Impression: Abdominal wall hernia Disposition: HOME, SELF-CARE Condition: STABLE Referrals: DOMENICO SALAS MD (PCP) CHU HO MD Patient Instructions: Abdominal Pain, Hernia, Hypertension Scripts Hydrocodone Bit/Acetaminophen (NORCO 5-325 TABLET) 1 Each Tablet 1 TAB PO BID, #60 TAB Prov: RADHA ALLAN DO 09/22/19 RADHA ALLAN DO Sep 22, 2019 23:57
[2019-09-23 00:09] VITALS: BP 187/107
[2019-09-23] MEDS ORDERED: MORPHINE SULFATE 4 MG/ML DISP.SYRIN. IV ONE (00:15)
[2019-09-23] MEDS ORDERED: LISINOPRIL 10 MG TABLET PO ONE (00:15)
== END 2019-09-23 00:27 | disposition home or self-care (01) ==
LOC: ER 21:24
DX: K43.9 Ventral hernia without obstruction or gangrene (principal); E78.5 Hyperlipidemia, unspecified; I10 Essential (primary) hypertension
CPT/HCPCS: 36415; 74177; 80053; 81001; 83605; 83690; 85025; 96374; 96375; 96376; 99285; J1170; J2270; J2405; Q9967; J7030

== ENCOUNTER 2020-01-02 16:28 | Emergency (ER) | payer OTHER ==
[~2020-01-02] VITALS: Ht 152.4 cm; Wt 106.1 kg
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
[2020-01-02] MEDS ORDERED: HYDR-3165 PO (17:38)
[2020-01-02 17:40] VITALS: BP 158/99
== END 2020-01-02 17:42 | disposition home or self-care (01) ==
LOC: ER 16:28
DX: M79.632 Pain in left forearm (principal); M25.532 Pain in left wrist; E78.00 Pure hypercholesterolemia, unspecified; I10 Essential (primary) hypertension; V98.8XXD Other specified transport accidents, subsequent encounter
CPT/HCPCS: 73090; 73110; 99284

== ENCOUNTER 2020-01-25 06:38 | Emergency (ER) | payer OTHER ==
[~2020-01-25] VITALS: Ht 152.4 cm; Wt 110.0 kg
[2020-01-25] MEDS ORDERED: IV NORMAL SALINE 1,000ML 1,000 ML IV ONE (07:15)
[2020-01-25] MEDS ORDERED: ONDANSETRON PF 4 MG/2 ML VIAL. IVP ONE (07:15)
--- NOTE | 2020-01-25 07:25 | PHYS DOC ---
Past History Past Medical History: Depression, High Cholesterol, Hypertension, Other Additional Past Medical Histor: abdominal hernia Past Surgical History: No Surgical History Alcohol Use: None Drug Use: None General Adult EDM: Chief Complaint: ABDOMINAL PAIN HPI: HPI: 59-year-old female presents with abdominal pain. She is having discomfort in her epigastric region as well as around her umbilical hernia. She has had the hernia for a long time and it has not been bothering her. And now feels more full and achy. She also has some cramping epigastric abdominal pain. Patient still has her gallbladder. She has had a few episodes of vomiting this morning. The last one was about half an hour ago. Her last bowel movement was this morning but it was small. She did not have a bowel movement yesterday. She denies fever chills. Review of Systems: Review of Systems: Constitutional: Denies fever or chills Eyes: Denies change in visual acuity HENT: Denies nasal congestion or sore throat Respiratory: Denies cough or shortness of breath Cardiovascular: Denies chest pain or edema GI: Epigastric and periumbilical abdominal pain, nausea, vomiting, constipation. : Denies dysuria Musculoskeletal: Denies back pain or joint pain Integument: Denies rash Neurologic: Denies headache, focal weakness or sensory changes Endocrine: Denies polyuria or polydipsia Lymphatic: Denies swollen glands Psychiatric: Denies depression or anxiety Heart Score: Risk Factors: Risk Factors: DM, Current or recent (<one month) smoker, HTN, HLP, family history of CAD, obesity. Risk Scores: Score 0 - 3: 2.5% MACE over next 6 weeks - Discharge Home Score 4 - 6: 20.3% MACE over next 6 weeks - Admit for Clinical Observation Score 7 - 10: 72.7% MACE over next 6 weeks - Early Invasive Strategies Current Medications: Current Meds: Current Medications Medications (Trade) Dose Ordered Sig/Florentin Start Time Stop Time Status Last Admin Dose Admin Ondansetron HCl (Zofran) 4 mg 1X ONCE 01/25/20 07:15 01/25/20 07:16 UNV Sodium Chloride 1,000 ml @ 1,000 mls/hr 1X ONCE 01/25/20 07:15 01/25/20 08:14 UNV Allergies: Allergies: Allergies Coded Allergies Type Severity Reaction Last Updated Verified No Known Drug Allergies 01/02/20 No Physical Exam: PE: Constitutional: Well developed, well nourished, no acute distress, non-toxic appearance. [] HENT: Normocephalic, atraumatic, bilateral external ears normal, oropharynx moist, no oral exudates, nose normal. [] Eyes: PERRLA, EOMI, conjunctiva normal, no discharge. [] Neck: Normal range of motion, no tenderness, supple, no stridor. [] Cardiovascular:Heart rate regular rhythm, no murmur [] Lungs & Thorax: Bilateral breath sounds clear to auscultation [] Abdomen: Bowel sounds normal, soft around the hernia with mild tenderness, great er in the epigastric region, no masses, no pulsatile masses. [] Skin: Warm, dry, no erythema, no rash. [] Back: No tenderness, no CVA tenderness. [] Extremities: No tenderness, no cyanosis, no clubbing, ROM intact, no edema. [] Neurologic: Alert and oriented X 3, normal motor function, normal sensory function, no focal deficits noted. [] Psychologic: Affect normal, judgement normal, mood normal. [] EKG: EKG: [] Radiology/Procedures: Radiology/Procedures: [] Impressions: PQRS Compliance Statement: One or more of the following individualized dose reduction techniques were utilized for this examination: 1. Automated exposure control 2. Adjustment of the mA and/or kV according to patient size 3. Use of iterative reconstruction technique CT abdomen/pelvis with contrast 01/25/2020 7:19 AM INDICATION: Periumbilical abdominal pain. History of hernia. COMPARISON: None available TECHNIQUE: Multiple axial CT images of the abdomen and pelvis were obtained after the intravenous administration of nonionic contrast. Coronal and sagittal reformats are provided. FINDINGS: Lung bases are clear. Heart size is within normal limits. There is a small hiatal hernia. Mild hypoattenuation of the hepatic parenchyma suggestive of hepatic steatosis. Liver, spleen, bilateral adrenal glands, pancreas and gallbladder are normal in appearance. Abdominal aorta is normal in course and caliber. Aortocaval lymph node measures 0.8 cm. There are no pathologically enlarged lymph nodes in abdomen and pelvis. There is no free fluid or free intraperitoneal air. There is mild colonic diverticulosis. Appendix is normal in appearance. There is a periumbilical hernia measuring 3.8 cm at the neck containing nondilated loop of small bowel and mildly inflamed fat. Immediately proximal to the hernia, there are mild fluid-filled bowel loops with small bowel wall thickening (series 2, image 61). Mild fecal stasis is noted. Minimal inflammation is identified within the ventral small bowel mesentery. No distention of the stomach or duodenum. The kidneys enhance symmetrically. There is no suspicious renal mass. There is no hydronephrosis. There are no suspected calculi within the kidneys, ureters or urinary bladder. Bladder is within normal limits given degree of distention. Partially calcified exophytic uterine fibroid measures 1.8 cm along the left uterine fundus. Uterus and adnexa are otherwise normal by CT. No suspicious osseous abnormality is identified. IMPRESSION: 1. Periumbilical hernia containing fat and small bowel with associated mildly inflamed proximal small bowel loops. Correlate with reducibility as consideration may be given for incarceration of bowel with early enteritis/partial small bowel obstruction. Continued radiographic follow-up could be of benefit. Electronically signed by: Ayaka Mcdonald MD (01/25/2020 8:28 AM) [facility] DICTATED AND SIGNED BY: AYAKA MCDONALD MD DATE: 01/25/20827 CC: FIGUEROA DEL VALLE DO; DOMENICO SALAS MD ~ Course & Med Decision Making: Course & Med Decision Making Pertinent Labs and Imaging studies reviewed. (See chart for details) Patient's labs are unremarkable. Her urinalysis is negative for infection. Her CT scan does show possible cysts partial small bowel obstruction with some inflammation around the bowel near that hernia. See official report for more details. I spoke with Dr. Joseph and he has recommended we transfer the patient to [facility] will he will accept her for admission. The patient is agreement with this plan. She will go by ambulance. [] Dragon Disclaimer: Dragon Disclaimer: This electronic medical record was generated, in whole or in part, using a voice recognition dictation system. Departure Departure: Impression: Primary Impression: Partial small bowel obstruction Disposition: XFER SHT-TRM HOSP Condition: STABLE Referrals: DOMENICO SALAS MD (PCP) Justification of Admission: Justification of Admission: Justification of Admission Dx: Yes Comments: Partial small bowel obstruction FIGUEROA DEL VALLE DO Jan 25, 2020 07:25
[2020-01-25] MEDS ORDERED: IOHEXOL 300 MG/ML 75 ML VIAL. IV ONE (07:45)
[2020-01-25 08:02] LABS: BASO % 0 % (0-3); EOS % 0 % (0-3); HEMATOCRIT 45.6 % (36.0-47.0); HEMOGLOBIN 15.3 g/dL (12.0-15.5); LYMPH # 0.9 x10^3/uL (1.0-4.8); LYMPH % 9 % (24-48); MEAN CORPUSCULAR HEMOGLOBIN 32 pg (25-35); MEAN CORPUSCULAR HGB CONC 34 g/dL (31-37); MEAN CORPUSCULAR VOLUME 94 fL (79-100); MONO # 0.2 x10^3/uL (0.0-1.1); MONO % 2 % (0-9); NEUT # 8.9 x10^3uL (1.8-7.7); NEUT % 88 % (31-73); PLATELET COUNT 231 x10^3/uL (140-400); RED BLOOD COUNT 4.83 x10^6/uL (3.50-5.40); RED CELL DISTRIBUTION WIDTH 13.2 % (11.5-14.5); WHITE BLOOD COUNT 10.2 x10^3/uL (4.0-11.0)
[2020-01-25 08:08] LABS: COLOR,URINE YELLOW
[2020-01-25 08:09] LABS: BACTERIA,URINE 0 /HPF (0-FEW); BILIRUBIN,URINE NEG (NEG); CLARITY,URINE HAZY; GLUCOSE,URINE NEG (NEG); NITRITE,URINE NEG (NEG); SQUAMOUS EPITHELIAL CELL,UR FEW /LPF; UROBILINOGEN,URINE 0.2 mg/dL (0.2 mg/dL)
[2020-01-25 08:10] LABS: CALCIUM 9.4 mg/dL (8.5-10.1); CREATININE 0.9 mg/dL (0.6-1.0); GFR 64.3; POTASSIUM 4.3 mmol/L (3.5-5.1)
[2020-01-25 08:15] LABS: ALBUMIN 3.8 g/dL (3.4-5.0); ALBUMIN/GLOBULIN RATIO 0.8 (1.0-1.7); TOTAL BILIRUBIN 0.3 mg/dL (0.2-1.0); TOTAL PROTEIN 8.3 g/dL (6.4-8.2)
--- NOTE | 2020-01-25 08:30 | RAD ---
PQRS Compliance Statement: One or more of the following individualized dose reduction techniques were utilized for this examination: 1. Automated exposure control 2. Adjustment of the mA and/or kV according to patient size 3. Use of iterative reconstruction technique CT abdomen/pelvis with contrast 01/25/2020 7:19 AM INDICATION: Periumbilical abdominal pain. History of hernia. COMPARISON: None available TECHNIQUE: Multiple axial CT images of the abdomen and pelvis were obtained after the intravenous administration of nonionic contrast. Coronal and sagittal reformats are provided. FINDINGS: Lung bases are clear. Heart size is within normal limits. There is a small hiatal hernia. Mild hypoattenuation of the hepatic parenchyma suggestive of hepatic steatosis. Liver, spleen, bilateral adrenal glands, pancreas and gallbladder are normal in appearance. Abdominal aorta is normal in course and caliber. Aortocaval lymph node measures 0.8 cm. There are no pathologically enlarged lymph nodes in abdomen and pelvis. There is no free fluid or free intraperitoneal air. There is mild colonic diverticulosis. Appendix is normal in appearance. There is a periumbilical hernia measuring 3.8 cm at the neck containing nondilated loop of small bowel and mildly inflamed fat. Immediately proximal to the hernia, there are mild fluid-filled bowel loops with small bowel wall thickening (series 2, image 61). Mild fecal stasis is noted. Minimal inflammation is identified within the ventral small bowel mesentery. No distention of the stomach or duodenum. The kidneys enhance symmetrically. There is no suspicious renal mass. There is no hydronephrosis. There are no suspected calculi within the kidneys, ureters or urinary bladder. Bladder is within normal limits given degree of distention. Partially calcified exophytic uterine fibroid measures 1.8 cm along the left uterine fundus. Uterus and adnexa are otherwise normal by CT. No suspicious osseous abnormality is identified. IMPRESSION: 1. Periumbilical hernia containing fat and small bowel with associated mildly inflamed proximal small bowel loops. Correlate with reducibility as consideration may be given for incarceration of bowel with early enteritis/partial small bowel obstruction. Continued radiographic follow-up could be of benefit. Electronically signed by: Mona Horan MD (01/25/2020 8:28 AM) [facility]
[2020-01-25 09:56] VITALS: BP 136/91
== END 2020-01-25 10:50 | disposition short-term general hospital (02) ==
LOC: ER 06:38
DX: K56.600 Partial intestinal obstruction, unspecified as to cause (principal); E78.00 Pure hypercholesterolemia, unspecified; I10 Essential (primary) hypertension; R11.2 Nausea with vomiting, unspecified
CPT/HCPCS: 36415; 74177; 80053; 81001; 85025; 96361; 96374; 96375; 99285; J2405; J3010; J7030; Q9967

== ENCOUNTER 2020-10-19 08:33 | Emergency (ER) | payer SELFPAY ==
[~2020-10-19] VITALS: Ht 152.4 cm; Wt 110.0 kg
--- NOTE | 2020-10-19 08:46 | PHYS DOC ---
Past History Past Medical History: Hypertension Additional Past Medical Histor: abdominal hernia Past Surgical History: No Surgical History Alcohol Use: None Drug Use: None Adult General Chief Complaint Chief Complaint: MULTIPLE COMPLAINTS HPI HPI Patient is a 59-year-old female who presents for chest pain. Onset was overnight while sleeping. Nothing known makes better or worse. Patient reports substernal chest pain that radiates to shoulder blades and right upper extremity. Patient reports timing of symptoms waxes and wanes, states episodes are 10 out of 10 in severity but she is often asymptomatic. These have been ongoing since onset. States each episode lasts anywhere from a few seconds to no longer than 20 minutes. She has never experienced pain like this before. Reports cigarette abuse otherwise no known past medical issues besides obesity. Recently started a high-protein diet and attempt to lose weight. No other concerning ingestions or medication changes. Sees her family practice physician regularly Review of Systems Review of Systems Fourteen body systems of review of systems have been reviewed. See HPI for pertinent positives and negative responses, other neal all other systems are negative, non-pertinent or non-contributory Allergies Allergies Allergies Coded Allergies Type Severity Reaction Last Updated Verified No Known Drug Allergies 01/25/20 No Physical Exam Physical Exam Constitutional: Well developed, well nourished, no acute distress, non-toxic appearance. HENT: Normocephalic, atraumatic, bilateral external ears normal, oropharynx m oist, no oral exudates, nose normal. Eyes: PERRLA, EOMI, conjunctiva normal, no discharge. Neck: Normal range of motion, no tenderness, supple, no stridor. Cardiovascular: Heart rate regular, sinus rhythm, no murmurs rubs or gallops. No tenderness to palpation of chest wall Lungs & Thorax: Bilateral breath sounds clear to auscultation Abdomen: Bowel sounds normal, soft and protuberant, no tenderness, no masses, no pulsatile masses. Nonsurgical abdomen, no peritoneal signs Skin: Warm, dry, no erythema, no rash. Back: No tenderness, no CVA tenderness. Extremities: No tenderness, no cyanosis, no clubbing, ROM intact, no edema. Neurologic: Alert and oriented X 3, grossly normal motor & sensory function, no focal deficits noted. Psychologic: Anxious affect, judgement normal, mood normal. Current Patient Data Vital Signs Vital Signs Date Time Temp Pulse Resp B/P (MAP) Pulse Ox O2 Delivery O2 Flow Rate FiO2 10/19/20 09:39 75 173/101 10/19/20 09:02 89 173/101 10/19/20 08:42 97.7 89 20 173/101 (125) 98 Lab Results Laboratory Tests Test 10/19/20 08:46 White Blood Count 7.4 x10^3/uL Red Blood Count 4.97 x10^6/uL Hemoglobin 15.8 g/dL Hematocrit 46.6 % Mean Corpuscular Volume 94 fL Mean Corpuscular Hemoglobin 32 pg Mean Corpuscular Hemoglobin Concent 34 g/dL Red Cell Distribution Width 12.8 % Platelet Count 207 x10^3/uL Neutrophils (%) (Auto) 62 % Lymphocytes (%) (Auto) 30 % Monocytes (%) (Auto) 5 % Eosinophils (%) (Auto) 2 % Basophils (%) (Auto) 0 % Neutrophils # (Auto) 4.6 x10^3uL Lymphocytes # (Auto) 2.3 x10^3/uL Monocytes # (Auto) 0.4 x10^3/uL Eosinophils # (Auto) 0.1 x10^3/uL Basophils # (Auto) 0.0 x10^3/uL Sodium Level 143 mmol/L Potassium Level 3.7 mmol/L Chloride Level 106 mmol/L Carbon Dioxide Level 28 mmol/L Anion Gap 9 Blood Urea Nitrogen 30 mg/dL Creatinine 0.8 mg/dL Estimated GFR (Cockcroft-Gault) 73.7 Glucose Level 109 mg/dL Calcium Level 9.2 mg/dL Troponin I Quantitative 0.061 ng/mL Current Medications Medications (Trade) Dose Ordered Sig/Florentin Route PRN Reason Start Time Stop Time Status Last Admin Dose Admin Nitroglycerin (Nitrostat) 0.4 mg STK-MED ONCE SL 10/19/20 08:58 10/19/20 08:58 DC Nitroglycerin (Nitrostat) 0.4 mg PRN Q5MIN PRN SL CHEST PAIN 10/19/20 09:00 10/19/20 09:39 Aspirin (Aspirin Chewable) 324 mg 1X ONCE PO 10/19/20 09:00 10/19/20 09:01 DC 10/19/20 09:00 Iohexol (Omnipaque 350 Mg/ml) 100 ml 1X ONCE IV 10/19/20 09:15 10/19/20 09:16 DC 10/19/20 09:38 Morphine Sulfate (Morphine 4mg Syringe) 4 mg 1X ONCE IV 10/19/20 09:30 10/19/20 09:33 DC 10/19/20 09:37 Enoxaparin Sodium (Lovenox 120mg Syringe) 110 mg 1X ONCE SQ 10/19/20 10:30 10/19/20 10:31 DC EKG EKG EKG ordered and interpreted by myself at 0845 hrs. as sinus rhythm at 91 bpm, unremarkable intervals, left axis deviation, no acute ischemic findings, no STEMI Radiology/Procedures Radiology/Procedures PROCEDURE: PORTABLE CHEST 1V EXAM: Chest, single view HISTORY: Chest pain. COMPARISON: CT angiogram performed immediately prior to this exam. FINDINGS: A frontal view of the chest obtained. There is no infiltrate, pleural effusion or pneumothorax. The heart is normal in size. IMPRESSION: No acute pulmonary finding. Electronically signed by: Christine Weber MD (10/19/2020 9:51 AM) [id number] //////////////////////// PROCEDURE: CT ANGIOGRAPHY CHEST EXAM: CT angiography of the chest with intravenous contrast. HISTORY: Substernal chest pain. TECHNIQUE: Computed tomographic images of the chest were obtained following the administration of intravenous contrast according to angiography protocol. Multiplanar reformatting was performed and three dimensional maximum intensity projection images were obtained. *One or more of the following individualized dose reduction techniques were utilized for this examination: 1. Automated exposure control. 2. Adjustment of the mA and/or kV according to patient size. 3. Use of iterative reconstruction technique. COMPARISON: None. FINDINGS: There is no convincing pulmonary embolism. Evaluation of the distal pulmonary arteries is limited due to suboptimal contrast opacification. The heart is normal in size. The aorta is normal in caliber. There is no lymphadenopathy. There is no pleural effusion or pneumothorax. There is posterior dependent and basilar atelectasis. There is mild air trapping. There is no consolidated infiltrate. There is no suspicious bone or nodule. There is mild central bronchial wall thickening. There is a small hiatal hernia. There is right renal cortical scarring. There is degenerative change involving the thoracic spine. There is no acute osseous finding. IMPRESSION: 1. No evidence of pulmonary embolism. 2. Mild central bronchial wall thickening, a finding which can be seen as a sequela of bronchitis. No consolidated infiltrate is seen. Electronically signed by: Christine Weber MD (10/19/2020 9:47 AM) [id number] Heart Score C/O Chest Pain: Yes HEART Score for Chest Pain: HEART Score for Chest Pain Response (Comments) Value History Moderately Suspicious 1 ECG Normal 0 Age >45 - < 65 1 Risk Factors 1 or 2 Risk Factors 1 Troponin >1-<3x Normal Limit 1 Total 4 Risk Factors: Risk Factors: DM, Current or recent (<one month) smoker, HTN, HLP, family histo ry of CAD, obesity. Risk Scores: Risk Factors: DM, Current or recent (<one month) smoker, HTN, HLP, family history of CAD, obesity. Course & Med Decision Making Course & Med Decision Making Afebrile patient who is hypertensive on arrival but otherwise hemodynamically stable presented with history exam concerning for cardiac chest pain. Physical exam was grossly nonconcerning Comprehensive ER work-up obtained, disclosed entirety of diagnostic studies ordered with specific mention of x3 EKGs that did not show STEMI, unremarkable CT angio and elevated troponin I discussed risk benefits of being admitted versus going home. I recommended patient be transferred to [facility] for further inpatient medical management and evaluation by cardiology services, she was amenable I contacted Dr. Joseph who agreed to accept patient under his care at [facility]. I also talked to [facility] cardiology group and reviewed case, they recommended I give 110 mg Lovenox and transfer patient over for consultation, no other orders needed at this time Patient reevaluated after ER intervention that included x2 sublingual nitro, 324 mg aspirin, 4 mg morphine and 50 mcg fentanyl with improvement in presenting symptoms Patient continuously monitored and stable prior to ER transport via EMS to [facility] for admission Critical Care Time This patient required critical care. Due to the fact that the patient required a significant amount of one on one physician - patient contact time, ordering and review of studies, arranging urgent treatment with development of a management plan, evaluation of patients response to treatment with frequent reassessments, and discussions with other providers this patient required 52 minutes of critical care time. Critical care time was indicated due to the inherent instabi lity and/or potential for instability in this patient. The critical care time that is allocated to this patient is above and beyond any time spent on any other billable procedures performed on this patient. Dragon Disclaimer Dragon Disclaimer This electronic medical record was generated, in whole or in part, using a voice recognition dictation system. Departure Departure: Impression: Primary Impression: NSTEMI (non-ST elevated myocardial infarction) Disposition: 02 DC/TRF OTHER SHORT TERM HOS ([facility]) Admitting Physician: Anton Joseph Condition: STABLE Referrals: CHRISTINE SALAS MD (PCP) SHARIFA BLANTON DO Oct 19, 2020 08:46
[2020-10-19] MEDS ORDERED: NITROGLYCERIN SUBLINGUAL 0.4 MG BOTTLE OF 25. SL ONE (08:58)
[2020-10-19] MEDS ORDERED: ASPIRIN CHEWABLE 81 MG TABLET. PO ONE (09:00)
[2020-10-19] MEDS: NITROGLYCERIN SUBLINGUAL 0.4 MG BOTTLE OF 25. SL PRN ×2 (09:02→09:39)
[2020-10-19] MEDS ORDERED: IOHEXOL 350 MG/ML 100 ML VIAL. IV ONE (09:15)
[2020-10-19 09:19] LABS: BASO % 0 % (0-3); EOS # 0.1 x10^3/uL (0.0-0.7); EOS % 2 % (0-3); HEMATOCRIT 46.6 % (36.0-47.0); HEMOGLOBIN 15.8 g/dL (12.0-15.5); LYMPH # 2.3 x10^3/uL (1.0-4.8); LYMPH % 30 % (24-48); MEAN CORPUSCULAR HEMOGLOBIN 32 pg (25-35); MEAN CORPUSCULAR HGB CONC 34 g/dL (31-37); MEAN CORPUSCULAR VOLUME 94 fL (79-100); MONO # 0.4 x10^3/uL (0.0-1.1); MONO % 5 % (0-9); NEUT # 4.6 x10^3uL (1.8-7.7); NEUT % 62 % (31-73); PLATELET COUNT 207 x10^3/uL (140-400); RED BLOOD COUNT 4.97 x10^6/uL (3.50-5.40); RED CELL DISTRIBUTION WIDTH 12.8 % (11.5-14.5); WHITE BLOOD COUNT 7.4 x10^3/uL (4.0-11.0)
[2020-10-19 09:28] LABS: CALCIUM 9.2 mg/dL (8.5-10.1); CREATININE 0.8 mg/dL (0.6-1.0); GFR 73.7; POTASSIUM 3.7 mmol/L (3.5-5.1)
--- NOTE | 2020-10-19 09:29 | EKG ---
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
[2020-10-19] MEDS ORDERED: MORPHINE SULFATE 4 MG/ML DISP.SYRIN. IV ONE (09:30)
[2020-10-19 09:39] VITALS: BP 173/101
--- NOTE | 2020-10-19 09:39 | EKG ---
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
--- NOTE | 2020-10-19 09:49 | RAD ---
EXAM: CT angiography of the chest with intravenous contrast. HISTORY: Substernal chest pain. TECHNIQUE: Computed tomographic images of the chest were obtained following the administration of int ravenous contrast according to angiography protocol. Multiplanar reformatting was performed and three dimensional maximum intensity projection images were obtained. *One or more of the following individualized dose reduction techniques were utilized for this examina tion: 1. Automated exposure control. 2. Adjustment of the mA and/or kV according to patient size. 3. Use of iterative reconstruction technique. COMPARISON: None. FINDINGS: There is no convincing pulmonary embolism. Evaluation of the distal pulmonary arteries is l imited due to suboptimal contrast opacification. The heart is normal in size. The aorta is normal in caliber. There is no lymphadenopathy. There is no pleural effusion or pneumothorax. There is posterio r dependent and basilar atelectasis. There is mild air trapping. There is no consolidated infiltrate. There is no suspicious bone or nodule. There is mild central bronchial wall thickening. There is a s mall hiatal hernia. There is right renal cortical scarring. There is degenerative change involving th e thoracic spine. There is no acute osseous finding. IMPRESSION: 1. No evidence of pulmonary embolism. 2. Mild central bronchial wall thickening, a finding which can be seen as a sequela of bronchitis. No consolidated infiltrate is seen. Electronically signed by: Christine Weber MD (10/19/2020 9:47 AM) [id number]
--- NOTE | 2020-10-19 09:53 | RAD ---
EXAM: Chest, single view HISTORY: Chest pain. COMPARISON: CT angiogram performed immediately prior to this exam. FINDINGS: A frontal view of the chest obtained. There is no infiltrate, pleural effusion or pneumotho rax. The heart is normal in size. IMPRESSION: No acute pulmonary finding. Electronically signed by: Christine Weber MD (10/19/2020 9:51 AM) [id number]
[2020-10-19] MEDS ORDERED: ENOXAPARIN ** NOTE DOSE ** SYRINGE SQ ONE (10:30)
--- NOTE | 2020-10-19 11:02 | EKG ---
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
== END 2020-10-19 12:50 | disposition short-term general hospital (02) ==
LOC: ER 08:33
DX: I21.4 Non-ST elevation (NSTEMI) myocardial infarction (principal); I10 Essential (primary) hypertension; Z98.890 Other specified postprocedural states
CPT/HCPCS: 36415; 71045; 71275; 80048; 84484; 85025; 93005; 96372; 96374; 96375; 99291; J1650; J2270; J3010; Q9967